=== PATIENT | male | born 1990 | race Caucasian/White ===

== ENCOUNTER 2017-11-13 11:02 | Emergency (ER) | payer OTHER ==
[2017-11-13 11:14] VITALS: BP 157/95; PULSE 90; TEMP 98.4; BMI 28.3
[2017-11-13] MEDS ORDERED: IBUPROFEN 400 MG TABLET (FP) PO ONE ×2 (11:30→11:33)
--- NOTE | 2017-11-13 11:30 | PDOC ---
History of Present Illness - General Chief Complaint: Injury Stated Complaint: HAND INJURY Time Seen by Provider: 11/13/17 11:16 History Source: Patient Exam Limitations: No Limitations - History of Present Illness Initial Comments: 11/13/17 13:02 Patient is [id number] male with no past medical history who presents to the emergency department today for right wrist pain. Patient is right-hand dominant. Patient states that he tripped over a rock 2 days ago and fell on his hands. Since then he has had right wrist and hand pain. He states it hurts to make a fist. Denies fevers, chills, numbness and tingling to the extremity and weakness. Past History - Travel Traveled outside of the country in the last 30 days: No Close contact w/someone who was outside of country & ill: No - Past Medical History Allergies/Adverse Reactions: Allergies Allergy/AdvReac Type Severity Reaction Status Date / Time No Known Allergies Allergy Verified 11/13/17 11:08 Home Medications: Ambulatory Orders Ibuprofen 800 mg PO TID #30 tablet 11/13/17 Oxycodone HCl/Acetaminophen [Percocet 5-325 mg Tablet] 1 tab PO Q6H #10 tablet MDD 4 11/13/17 Asthma: Yes COPD: No - Suicide/Smoking/Psychosocial Hx Smoking Status: Yes Smoking History: Current every day smoker Number of Cigarettes Smoked Daily: 5 Information on smoking cessation initiated: No Review of Systems - Review of Systems Able to Perform ROS?: Yes Comments:: 11/13/17 12:33 CONSTITUTIONAL: Absent: fever, chills, diaphoresis, generalized weakness, malaise, loss of appetite MUSCULOSKELETAL: Present: R wrist pain and swelling Absent: myalgia SKIN: Absent: rash, itching, pallor NEUROLOGIC: Absent: headache, focal weakness or paresthesias, dizziness, unsteady gait, seizure, mental status changes, bladder or bowel incontinence PSYCHIATRIC: Absent: anxiety, depression, suicidal or homicidal ideation, hallucinations. Is the patient limited Palestinian proficient: No *Physical Exam - Vital Signs Last Vital Signs Temp Pulse Resp BP Pulse Ox 98.4 F 90 18 157/95 100 11/13/17 11:08 11/13/17 11:08 11/13/17 11:08 11/13/17 11:08 11/13/17 11:08 - Physical Exam Comments: 11/13/17 12:33 GENERAL: Well developed, well nourished. Awake and alert. No acute distress. NECK: Supple. Full ROM. No JVD. Carotid pulses 2+ and symmetric, without bruits. No thyromegaly. No lymphadenopathy. MUSCULOSKELETAL Swelling to the R anatomical snuff box. TTP over the R scaphoid. Pain with supination and pronation of the R wristNormal range of motion at all joints. No bony deformities or tenderness. No CVA tenderness. EXTREMITIES: No cyanosis. No clubbing. No edema. No calf tenderness. SKIN: Warm and dry. Normal capillary refill. No rashes. No jaundice. NEUROLOGICAL: Alert, awake, appropriate. Cranial nerves 2-12 intact. No deficits to light touch and temperature in face, upper extremities and lower extremities. No motor deficits in the in face, upper extremities and lower extremities. Normoreflexic in the upper and lower extremities. Normal speech. Toes are down- going bilaterally. Gait is normal without ataxia. Procedures - Splinting Splint Location: Right: Wrist Pre-Proc Neuro Vasc Exam: normal Hand-Made Type: orthoglass Splint Type: Yes: Thumb Spica (R hand) Post-Proc Neuro Vasc Exam: unchanged from pre-exam Gideon Bandage: 3" (1), 4" (1) Sling: Yes Complications: No Post splint xray: No Good repositioning: Yes Medical Decision Making - Medical Decision Making 11/13/17 13:03 Patient is [id number] male with no past medical history who presents to the emergency department today for right wrist pain. -On exam, pt with tenderness over the anatomic snuff box with pain on palpation of the scaphoid. (+) Medina's test -X-ray is negative for scaphoid fracture at this time. (+) MC sprain of the wrist -Pt prophylactically placed in thumb spica splint given clinical exam -Referred to ortho -Pain management given -DC home. Return precautions given. Pt understands all dc instructions and all questions were answered. *DC/Admit/Observation/Transfer Diagnosis at time of Disposition: Right wrist sprain Qualifiers: Encounter type: initial encounter Qualified Code(s): S63.501A - Unspecified sprain of right wrist, initial encounter - Discharge Dispostion Disposition: HOME Condition at time of disposition: Stable Decision to Admit order: No - Prescriptions Prescriptions: Ibuprofen 800 mg PO TID #30 tablet Oxycodone HCl/Acetaminophen [Percocet 5-325 mg Tablet] 1 tab PO Q6H #10 tablet MDD 4 - Referrals Referrals: Robb Webb MD [Staff Physician] - Adarsh North MD [Staff Physician] - Kota Gatica MD [Staff Physician] - - Patient Instructions Printed Discharge Instructions: DI for Wrist Sprain Additional Instructions: You sprained your wrist. Your x-ray was negative for broken bones. There is concern for a possible scaphoid fracture today, which is why you were placed in a splint Please keep your wrist elevated while at rest above the level of your heart to reduce swelling. You may take Motrin 800 mg every 8 hours to help reduce pain and swelling. You may take a percocet as needed for pain every [address] drink or drive after taking this medication Please ice the area for 20 minute intervals at least 5 times a day to help reduce swelling. Please wear the splint Please follow-up with orthopedics in 3-5 days for repeat x-ray and evaluation Return to the emergency department if you have worsening pain, or unable to walk , numbness and tingling of the foot, or had any changes in your symptoms. - Post Discharge Activity Forms/Work/School Notes: Back to Work
== END 2017-11-13 12:36 | disposition home or self-care (01) ==
LOC: JER 11:02 → JERFT 11:02
PROC: 2W3CX1Z Immobilization of Right Lower Arm using Splint (ICD-10-PCS; principal; 2017-11-13)
DX: S63.501A Unspecified sprain of right wrist, initial encounter (principal); W18.09XA Striking against other object with subsequent fall, initial encounter; Y93.89 Activity, other specified; Y92.89 Other specified places as the place of occurrence of the external cause; Y99.8 Other external cause status
CPT/HCPCS: 29125; 73030-TC-RT-FY; 73110-TC-RT-FY; 73130-TC-RT-FY; 99282-25

== ENCOUNTER 2018-09-12 16:57 | Emergency (ER) | payer OTHER, BC ==
[2018-09-12 17:02] VITALS: BP 140/62; PULSE 77; TEMP 98.2; BMI 30.5
[2018-09-12] MEDS ORDERED: DIPHTH,PERTUSS(ACELL),TET 0.5 ML DISP.SYRIN IM ONE ×2 (17:19→17:30)
--- NOTE | 2018-09-12 17:23 | PDOC ---
History of Present Illness - General Chief Complaint: Injury Stated Complaint: INJURY Time Seen by Provider: 09/12/18 17:07 - History of Present Illness Initial Comments: 09/12/18 17:21 28-year-old male without comorbidities presents for evaluation of a puncture wound about his left wrist. He states he was working with iron rebar when he was punctured in the left wrist with a piece of wire he is not current on tetanus. Past History - Past Medical History Allergies/Adverse Reactions: Allergies Allergy/AdvReac Type Severity Reaction Status Date / Time No Known Allergies Allergy Verified 09/12/18 17:04 Home Medications: Ambulatory Orders Ciprofloxacin HCl [Cipro] 500 mg PO BID #10 tablet 09/12/18 Asthma: Yes COPD: No - Suicide/Smoking/Psychosocial Hx Smoking Status: Yes Smoking History: Never smoked Number of Cigarettes Smoked Daily: 5 Information on smoking cessation initiated: No Hx Alcohol Use: No Drug/Substance Use Hx: No Review of Systems - Review of Systems Musculoskeletal: Yes: See HPI, Joint Pain *Physical Exam - Vital Signs Last Vital Signs Temp Pulse Resp BP Pulse Ox 98.2 F 77 18 140/62 97 09/12/18 17:00 09/12/18 17:00 09/12/18 17:00 09/12/18 17:00 09/12/18 17:00 - Physical Exam Comments: 09/12/18 17:22 Left wrist skin color and temperature are normal range of motion is full and nonpainful. There is no tenderness. There is a focal puncture wound just radial to the ulnar styloid. No gross sensory motor deficits neurovascular intact. ED Treatment Course - RADIOLOGY Radiology Studies Ordered: Category Date Time Status WRIST-LEFT [RAD] Stat Radiology 09/12/18 17:19 Ordered Medical Decision Making - Medical Decision Making 09/12/18 17:22 I will update the patient tetanus. I will also put him on prophylactic antibiotics as he feels the metal that punctured his skin became in contact with his bone. I will choose a fluoroquinolone. X-rays show no evidence of fracture trauma or destructive process. *DC/Admit/Observation/Transfer Diagnosis at time of Disposition: Puncture wound - Discharge Dispostion Disposition: HOME Condition at time of disposition: Stable Decision to Admit order: No - Referrals Referrals: Walter Ceballos MD [Staff Physician] - - Patient Instructions Printed Discharge Instructions: DI for Puncture Wound Additional Instructions: Please take prophylactic antibiotics as directed. Return to the emergency room for worsening symptoms. Follow-up with hand surgery without fail in the next 1- 2 days for further evaluation treatment options of wound check. Keep the area clean with soap and water and left open to air. Do not apply any ointments. - Post Discharge Activity
== END 2018-09-12 18:28 | disposition home or self-care (01) ==
LOC: JERFT 16:57
PROC: 3E0234Z Introduction of Serum, Toxoid and Vaccine into Muscle, Percutaneous Approach (ICD-10-PCS; principal; 2018-09-12)
DX: S61.532A Puncture wound without foreign body of left wrist, initial encounter (principal); W22.8XXA Striking against or struck by other objects, initial encounter; Y93.89 Activity, other specified; Y92.89 Other specified places as the place of occurrence of the external cause; Y99.0 Civilian activity done for income or pay
CPT/HCPCS: 73110-TC-LT-FY; 90715; 99281-25

== ENCOUNTER 2018-11-20 21:47 | Emergency (ER) | payer BC | END 2018-11-21 | disposition home or self-care (01) | LOC: JER 11-21 | DX: S29.8XXA Other specified injuries of thorax, initial encounter (principal); S50.812A Abrasion of left forearm, initial encounter; S20.412A Abrasion of left back wall of thorax, initial encounter; W17.89XA Other fall from one level to another, initial encounter; Y93.H3 Activity, building and construction; Y92.69 Other specified industrial and construction area as the place of occurrence of the external cause; Y99.0 Civilian activity done for income or pay ==